=== PATIENT | male | born 1980 | race Asian ===

== ENCOUNTER → 2021-04-03 | Outpatient (CLI) | payer OTHER ==
--- NOTE | 2021-04-03 14:02 | NUR ---
Pt monitored by RN during MRI. Pacemaker Rep at bedside. VSS
--- NOTE | 2021-04-03 17:13 | RAD ---
EXAMINATION: MRI RIGHT ANKLE WITHOUT IV CONTRAST CLINICAL HISTORY: Right ankle pain/sprain TECHNIQUE: Multiplanar multisequential images obtained through the ankle without intravenous contrast . COMPARISON: None FINDINGS: Anterior Talofibular Ligament: Within normal limits. Posterior Talofibular Ligament: Within normal limits. Anterior-Inferior Tibiofibular Ligament: Within normal limits. Posterior Tibiofibular Ligament: Within normal limits. Calcaneofibular Ligament: Within normal limits. Deltoid Ligament: Within normal limits. Spring Ligament: Within normal limits. Posterior Tibial Tendon: Within normal limits. Flexor Digitorum Longus Tendon: Within normal limits. Flexor Hallucis Longus Tendon: Within normal limits. Peroneal Tendons: Within normal limits. Extensor Tendons: Within normal limits. Achilles Tendon: Within normal limits. Bone Marrow: No acute fracture or suspicious marrow replacing process. Talar Dome: Within normal limits. Plantar Fascia: Within normal limits. Tarsal Tunnel/Sinus Tarsi: Within normal limits. Joint Fluid: No joint effusion or synovitis. IMPRESSION: No evidence of acute abnormality in the right ankle. Electronically signed by: David Stoddard DO (04/03/2021 5:11 PM) [id number]
== END ==
LOC: MRI 13:37
PROVIDERS: ATTEND Preventive Medicine Occupational Medicine
DX: S93.602A Unspecified sprain of left foot, initial encounter (principal); X58.XXXA Exposure to other specified factors, initial encounter; Y93.89 Activity, other specified; Y92.89 Other specified places as the place of occurrence of the external cause; Y99.8 Other external cause status
CPT/HCPCS: 73721